=== PATIENT | female | born 1985 | race Native Hawaiian/Other Pacific Islander ===

== ENCOUNTER 2017-05-19 11:40 | Inpatient (IN) | payer OTHER ==
[2017-05-19 12:30] VITALS: BMI 35.6
[2017-05-19] MEDS ORDERED: Lactated Ringer's 1,000 ML IV SCH ×2 (12:30)
[2017-05-19 13:09] LABS: BASO # 0.1 K/uL (0.0-0.2); BASO % 0.5 % (0.0-2.0); EOS # 0.2 K/uL (0.0-0.7); EOS % 1.3 % (0.0-4.0); HEMOGLOBIN 10.5 g/dL (11.0-16.0); LYMPH # 2.8 K/uL (1.0-4.3); LYMPH % 22.3 % (20.0-40.0); MEAN CORPUSCULAR HEMOGLOBIN 24.4 pg (27.0-31.0); MEAN CORPUSCULAR HGB CONC 31.7 g/dL (33.0-37.0); MEAN PLATELET VOLUME 11.3 fL (7.2-11.7); MONO % 8.1 % (0.0-10.0); NEUT # 8.5 K/uL (1.8-7.0); NEUT % 67.8 % (50.0-75.0); NRBC % 0.2 % (0.0-2.0); RBC 4.29 Mil/uL (3.80-5.20); RED CELL DISTRIBUTION WIDTH 14.9 % (11.5-14.5); WHITE BLOOD COUNT 12.6 K/uL (4.8-10.8)
[2017-05-19 13:12] LABS: SQUAMOUS EPITHIAL 1 /hpf (0-5); URINE BACTERIA RARE (<OCC); URINE BILIRUBIN NEGATIVE (NEGATIVE); URINE BLOOD NEGATIVE (NEGATIVE); URINE CLARITY Clear (Clear); URINE COLOR Yellow (YELLOW); URINE GLUCOSE (UA) NORMAL (Normal); URINE LEUKOCYTE ESTERASE NEG Leu/uL (Negative); URINE NITRATE NEGATIVE (NEGATIVE); URINE PROTEIN NEGATIVE (NEGATIVE); URINE UROBILINOGEN NORMAL mg/dL (0.2-1.0)
[2017-05-19 13:18] LABS: ALBUMIN 3.1 g/dL (3.5-5.0)
[2017-05-19 13:20] LABS: GFR AFRICAN-AMERICAN > 60; GFR NON-AFRICAN AMERICAN > 60
[2017-05-19 13:21] LABS: ALB/GLOB RATIO 0.9 (1.0-2.1); ALT/SGPT 29 U/L (9-52); AST/SGOT 26 U/L (14-36); BLOOD UREA NITROGEN 9 mg/dL (7-17); CALCIUM 8.3 mg/dl (8.6-10.4); URIC ACID 5.1 mg/dL (2.2-7.5)
[2017-05-19 13:24] LABS: INR 0.9; PROTHROMBIN TIME 10.4 SECONDS (9.7-12.2)
--- NOTE | 2017-05-19 14:13 | OBADHP ---
Datetime: 05/19/2017 12:55 IP Chief Complaint Other: IUGR, elevated BP; hypothyroid IP Admit Plan Other: cervical ripening Admit Comment, IP Provider: 32 y.o. , LMP 08/24/16, EGA 05/31/17, EGA 38w 2d - referred by prov OB, Dr. Hale for IOL secondary to IUGR and elevated BP in office, earlier this morning. Patient stat es has been followed for EFW which have gone from 5% to 23% to 15% this morning. Unsure as to actual BP reading this morning: "it was a little high". (+) AFM; denies LOF, VB. (+) occ Ctx x 1 week; pain scale 3/10. Denies headaches, blurred vision, epigastric or RUQ pain. care: Dr. Hale: note d for diagnosis of hypothyroid on levothyroxine; evaluation for IUGR, as above. 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 2012, correction fo deviated nasal septum NKDA Meds: PNV, whey protein - QD; levothyroxine 75 micrograms daily (took her dose this morning) Soc Hx: denies tobbaco, illicit drug or EtOH use. 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 - hypothyroid; Father alive 62 y.o. no med issues. No fam h/o cancer P.E.: as above. Mildly obese, in NAD. Awake, alert, oriented to time, person and place. Pleasant a nd cooperative - cervidil placed in posterior vaginal fornix at 1250 hours. Assessment: 32 y.o. P0, 38w 2d, possible IUGR; one elevated BP reading. BP in OB-ED, within normal limits. It was reiterated to patient (after speaking with Dr Hale): cervical ripening; possible pit ocin; ROM, may be performed. Patient expressed an understanding and agrees. Her, and her 's, q uestions were answered. No stigmata of pre-eclampsia at this time. Category 1 tracing. Clinically sta ble. Plan: 1) Admit 2) Clear liquid diet, until active labor 3) Patient may ambulate, PRN (after initial 2 hours of supine position after placement of cervidil ) 4) Admission labs, including pre-eclamptic labs 5) Continuous EFM 6) Anticipate vaginal delivery - as per, and discussed with, Dr. Hale Pelvic Type - PN: Adequate Extremities - PN: Normal Abdomen - PN: Normal Back - PN: Normal Breast - PN: Not Done Lungs - PN: Normal Heart - PN: Normal Thyroid - PN: Not Done Neurologic - PN: Normal HEENT - PN: Normal General - PN: Normal Presentation-Admit: Vertex FHR - Baseline A Provider: 135 Contraction Comments Provider: none Comments, ACOG Physical Exam: Abdomen: Gravid. Soft. Non tender in all quadrants. Fundal height 38 c m All other systems reviewed and are negative Gestation - Est Wks by US: 38w 2d IP Hx Assessment: The History has been Reviewed and is Current Vital Signs Provider: Reviewed; Within Normal Limits IP Chief Complaint: Other NICHD Variability Prov Fetus A: Moderate 6-25bpm NICHD Accel Fetus A IP Provider: 15X15 FHR Category Provider Fetus A: Category I NICHD Decel Fetus A IP Provider: None Dilatation, Provider: 1 Effacement, Provider: 30 Station, Provider: -3 Genitourinary Exam: Normal DTRs - PN: Not Done EGA AdmitDate IP: 38.2 IP Adm Impression: Term, intrauterine ; No Active Labor IP Admit Plan: Admit to unit; Initiate labor induction protocol
[2017-05-19] MEDS ORDERED: Bupivacaine 0.125%/FentaNYL 200 ML EPI ONE (18:38)
--- NOTE | 2017-05-19 19:48 | OBPN ---
Datetime: 05/19/2017 19:35 Contraction Comments Provider: 1-2 FHR - Baseline A Provider: 145 Gestation - Est Wks by US: 38w 2d IP Progress Note Comment: S/P epidural; FHR noted for variable decelerations V.E.: as above. Cervidil removed Assessment: 32 y.o. P0, 38w 2d, IOL for IUGR. BPs have been normal since admission: blood work wnl . FHR as above; cervidil removed. After 8 minutes, no recurrence of decels, baseline 140 bpm. Patien t now on left lateral and oxygen by mask. Clinically stable. Plan: 1) observe 2) start pitocin 3) anticipate vaginal delivery - as per and discussed with Dr. Geoffrey CHAVEZ Accel Fetus A IP Provider: 15X15 KATHY Variability Prov Fetus A: Moderate 6-25bpm Dilatation, Provider: 3 Effacement, Provider: 40 Station, Provider: -3 KATHY Decel Fetus A IP Provider: Variable Datetime: 05/19/2017 12:55 Presentation-Admit: Vertex Vital Signs Provider: Reviewed; Within Normal Limits FHR Category Provider Fetus A: Category I
[2017-05-19] MEDS ORDERED: Oxytocin 30 UNIT 30 UNITS/500 ML BAG IV PRN (20:45)
[2017-05-19] MEDS ORDERED: cefOXitin IV 2 gm in Dextrose 2 GM/50 ML BAG IVPB ONE ×2 (21:22→21:32)
[2017-05-19] MEDS ORDERED: Sodium Citrate/Citric Acid 15 ml Sol PO ONE (21:23)
[2017-05-19] MEDS ORDERED: Sodium Citrate/Citric Acid 15 ml Sol ONE (21:32)
[2017-05-19] MEDS ORDERED: Oxytocin 20 units in LR 2,000 ML IV ONE (21:33)
--- NOTE | 2017-05-19 21:34 | OBPN ---
Datetime: 05/19/2017 21:24 IP Progress Impression Other: NRFHRT; remote from delivery IP Procedures: Sterile Vag Exam IP Progress Plan: Deliver- Section Contraction Comments Provider: 1-2 FHR - Baseline A Provider: 140 Gestation - Est Wks by US: 38w 2d IP Progress Note Comment: FHRT noted for intermitent variable decelerations Alfred reveals contractions every 1-2 minutes. Concern for well-being in light of continued trial of labor was discussed with patient by Dr Chuck Hale. Patient has opted for abdominal delivery. Assessment: 32 yo P0, 38w 2d, possible IUGR; non reassuring heart tracing remote from [facility] for delivery. Tracing now reassuring. Plan: 1) Abdominal prep and shcave 2) Pre-medications 3) Notify anesthesia 4) Notifyy peds 5) director call to O.R. - as per Dr. Hale NICHD Accel Fetus A IP Provider: 10X10 NICHD Variability Prov Fetus A: Moderate 6-25bpm Dilatation, Provider: 3 Effacement, Provider: 40 Station, Provider: -3 NICHD Decel Fetus A IP Provider: Variable
--- NOTE | 2017-05-19 21:49 | OBHP ---
Datetime: 05/19/2017 21:24 FHR - Baseline A Provider: 140 Contraction Comments Provider: 1-2 Gestation - Est Wks by US: 38w 2d NICHD Variability Prov Fetus A: Moderate 6-25bpm NICHD Accel Fetus A IP Provider: 10X10 NICHD Decel Fetus A IP Provider: Variable Dilatation, Provider: 3 Effacement, Provider: 40 Station, Provider: -3 Datetime: 05/19/2017 12:55 IP Adm Impression: Term, intrauterine ; No Active Labor IP Chief Complaint Other: IUGR, elevated BP; hypothyroid IP Admit Plan: Admit to unit; Initiate labor induction protocol IP Admit Plan Other: cervical ripening Admit Comment, IP Provider: 32 y.o. , LMP 08/24/16, EGA 05/31/17, EGA 38w 2d - referred by prov OB, Dr. Hale for IOL secondary to IUGR and elevated BP in office, earlier this morning. Patient stat es has been followed for EFW which have gone from 5% to 23% to 15% this morning. Unsure as to actual BP reading this morning: "it was a little high". (+) AFM; denies LOF, VB. (+) occ Ctx x 1 week; pain scale 3/10. Denies headaches, blurred vision, epigastric or RUQ pain. care: Dr. Hale: note d for diagnosis of hypothyroid on levothyroxine; evaluation for IUGR, as above. 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 2012, correction fo deviated nasal septum NKDA Meds: PNV, whey protein - QD; levothyroxine 75 micrograms daily (took her dose this morning) Soc Hx: denies tobbaco, illicit drug or EtOH use. 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 - hypothyroid; Father alive 62 y.o. no med issues. No fam h/o cancer P.E.: as above. Mildly obese, in NAD. Awake, alert, oriented to time, person and place. Pleasant a nd cooperative - cervidil placed in posterior vaginal fornix at 1250 hours. Assessment: 32 y.o. P0, 38w 2d, possible IUGR; one elevated BP reading. BP in OB-ED, within normal limits. It was reiterated to patient (after speaking with Dr Hale): cervical ripening; possible pit ocin; ROM, may be performed. Patient expressed an understanding and agrees. Her, and her 's, q uestions were answered. No stigmata of pre-eclampsia at this time. Category 1 tracing. Clinically sta ble. Plan: 1) Admit 2) Clear liquid diet, until active labor 3) Patient may ambulate, PRN (after initial 2 hours of supine position after placement of cervidil ) 4) Admission labs, including pre-eclamptic labs 5) Continuous EFM 6) Anticipate vaginal delivery - as per, and discussed with, Dr. Hale agree with above, pt seen in office with IUGR , being monitored for growth, reports back pain star ting last night with pelvic pressure, increseing intensity and frequency, pt also reported in headach e wiht elevated bp, no ruq/epigatsric pain. pt denies lof, vb, +FM Plan admit for IOL secondayr to IUGR r/o preeclampisa -cervidil -preepclampic labs -close observation of vitals. Pelvic Type - PN: Adequate Extremities - PN: Normal Abdomen - PN: Normal Back - PN: Normal Breast - PN: Not Done Lungs - PN: Normal Heart - PN: Normal Thyroid - PN: Not Done Neurologic - PN: Normal HEENT - PN: Normal General - PN: Normal Presentation-Admit: Vertex Comments, ACOG Physical Exam: Abdomen: Gravid. Soft. Non tender in all quadrants. Fundal height 38 c m All other systems reviewed and are negative IP Hx Assessment: The History has been Reviewed and is Current EGA AdmitDate IP: 38.2 Vital Signs Provider: Reviewed; Within Normal Limits IP Indication for Induction: IUGR IP Chief Complaint: Other FHR Category Provider Fetus A: Category I Genitourinary Exam: Normal DTRs - PN: Not Done
[2017-05-19] MEDS ORDERED: Lidocaine 2% MPF (5 ml) Inj ONE (21:53)
[2017-05-19] MEDS ORDERED: ePHEDrine 50 mg/ml Inj ONE (21:53)
--- NOTE | 2017-05-19 21:56 | OBPN ---
Datetime: 05/19/2017 21:52 IP Progress Impression: Arrest of dilatation/descent IP Informed Consent Obtain: Section Delivery IP Progress Plan: Deliver- Section Membranes, Provider: Ruptured Amniotic Fluid Color, Provider: Clear FHR - Baseline A Provider: 125 Gestation - Est Wks by US: 38.2 IP Progress Note Comment: pt seen and examined, s/p cervidil due ot recurrent declerations depsite f etal resuccitation. Pt reports pain controlled after peidural. Pt denies VB, reports lof, +FM. Pt in fomred of indication for removal of cervidil, and advised recommend pitocon therapy if not progession , however pt had recurrent declerations despite ressuctiaotn of ivh, oxygen, reposition and unable to start pitocon. pt opted not to procee wiht inducation and opted for pLTCS. R/b/a/i not limited ot b leeding, infection d/w lamine. consent signed. EM currently Cat I [place]: q 2-4 min VE: 3cm/ SROM A/P @ 38.1 wks GA with NRFTH remote from delivery -autotransfusionist to OR -npo, ivf -preop antibiovcs -preop labs -anesthiea/or aware Vital Signs Provider: Reviewed; Within Normal Limits NICHD Variability Prov Fetus A: Moderate 6-25bpm Dilatation, Provider: 3
[2017-05-19] MEDS ORDERED: Oxytocin 10 Units/ml Inj ONE (22:23)
--- NOTE | 2017-05-19 23:07 | OBDS ---
DELIVERY PERSONNEL Delivery Doctor: Mika Hale MD Scrub Nurse: Erna Turcios OBT Production Department Supervisor: Kaley Valdovinos RN Anesthesiologist: Dr Ruiz MATERNAL INFORMATION Delivery Anesthesia: Epidural Estimated Blood Loss (ml): 800 Placenta Cultured: No Maternal Complications: None Provider Comments: live male in ROP postion , nuchal cord x 1 tight, agpars 9,9 weight 6lbs 3 ounces LABOR SUMMARY EDC: 05/31/2017 00:00 No. Babies in Womb: 1 Attempted: No LABOR INFORMATION Cervical Ripening Agents: Cervidil (Annotations: [address] w[address]) Group B Beta Strep: Negative Steroids Given: None Reason Steroids Not Administered: Not Applicable STAGES OF LABOR Stage 3 hrs: 0 Stage 3 min: 1 BABY A INFORMATION Delivery Date/Time: 05/19/2017 22:20 Method of Delivery: Born in Route : No : N/A Forceps: N/A Vacuum Extraction: N/A Shoulder Dystocia : No SHOULDER DYSTOCIA BABY A Infant Delivery Date/Time: 05/19/2017 22:20 PRESENTATION/POSITION BABY A Presentation: Cephalic Cephalic Presentation: Vertex Vertex Position: Right Occipital Posterior Breech Presentation: N/A PLACENTA INFORMATION BABY A Placenta Delivery Time : 05/19/2017 22:21 Placenta Method of Delivery: Manual Removal Placenta Status: Delivered SCORES BABY A Heart Rate 1 min: >100 bpm Resp Effort 1 min: Good Cry Reflex Irritability 1 min: Cough or Sneeze or Pulls Away Muscle Tone 1 min: Active Motion Color 1 min: Body [place], Extremities Blue Resuscitation Effort 1 min: Tactile Stimulation SCORE 1 MIN: 9 Heart Rate 5 min: >100 bpm Resp Effort 5 min: Good Cry Reflex Irritability 5 min: Cough or Sneeze or Pulls Away Muscle Tone 5 min: Active Motion Color 5 min: Body [place], Extremities Blue Resuscitation Effort 5 min: N/A SCORE 5 MIN: 9 INFORMATION BABY A Gestational Age at Delivery: 38.0 Gestational Status: Term Outcome : Liveborn Condition : Stable Sex: Male IDENTIFICATION/MEDS BABY A ID Band Number: [id number] Sensor Number: [id number] WEIGHT/LENGTH BABY A Infant Birthweight (gms): 2795 Weight (lb): 6 Infant Weight (oz): 3 Infant Length Inches: 19.00 Infant Length cms: 48.3 CORD INFORMATION BABY A No. Cord Vessels: 3 Nuchal Cord : Around Neck x1, Loose Infant Suction: Mouth; Nose ASSESSMENT BABY A Complications Other: none
--- NOTE | 2017-05-19 23:08 | PCM.SURG1 ---
Surgeon's Initial Post Op Note - Surgeon's Notes Surgeon: Machelle Hale MD Registration Manager: Yolis Morrissey MD Type of Anesthesia: Other Pre-Operative Diagnosis: Term Intrauterine , Intrauterine growth restriction, non reassuring heart tracing remote from delivery Operative Findings: live male infant rop , tight nuchal cord x 1 , reduced, normal tubes and ovaries, weight of 6lbs 3 ounce. supervisor [employer] present for delivery. Dr Morrissey was present for entire delivey and case adn essential in gaining in entry , retraction, exposure, deilverying baby, holding bladder blade , closing all layers, obtaining hemostasis. Post-Operative Diagnosis: same as preoperative Operation Performed: Primary Low transverse cesearean section Specimen/Specimens Removed: placenta Estimated Blood Loss: EBL {In ML}: 800 Blood Products Given: N/A Drains Used: No Drains Date of Surgery/Procedure: 05/19/17 Time of Surgery/Procedure: 22:00
[2017-05-19] MEDS ORDERED: DiphenhydrAMINE 50 mg/ml Inj IVP PRN (23:14)
[2017-05-19] MEDS ORDERED: Morphine Monoject Barrel PCA 1mg/ml IV PRN (23:15)
[2017-05-20] MEDS: ceFAZolin IV 1 gm in Dextrose 1 GM/50 ML BAG IVPB SCH ×3 (05:37→21:57)
[2017-05-20] MEDS ORDERED: SODIUM CHLORIDE 0.9% IVPB SCH (06:00)
[2017-05-20] MEDS ORDERED: CEFAZOLIN IVPB SCH (06:00)
[2017-05-20 09:17] LABS: MEAN CELL VOLUME 76.9 fL (81.0-99.0); MEAN CORPUSCULAR HEMOGLOBIN 24.4 pg (27.0-31.0); MEAN CORPUSCULAR HGB CONC 31.7 g/dL (33.0-37.0); MEAN PLATELET VOLUME 10.6 fL (7.2-11.7); RBC 3.42 Mil/uL (3.80-5.20); RED CELL DISTRIBUTION WIDTH 15.3 % (11.5-14.5); WHITE BLOOD COUNT 12.7 K/uL (4.8-10.8)
[2017-05-20] MEDS: Oxycodone/Acetaminophen 5/325 mg Tab PO PRN ×3 (09:25→21:04)
[2017-05-20 09:26] LABS: HEMOGLOBIN 8.3 g/dL (11.0-16.0)
[2017-05-20] MEDS: Multiple Vitamins Tab PO SCH (09:26)
--- NOTE | 2017-05-20 12:57 | OBPPN ---
Datetime: 05/20/2017 09:14 PP Pain Prov: Within normal limits PP Nausea Prov: Denies PP Flatus Prov: No PP Heart Prov: Normal PP Lungs Prov: Normal PP Abdomen/Uterus Prov: Normal PP Lochia Prov: Normal PP Vulva/Perineum Prov: Normal PP CVA Tenderness Prov: Normal PP Extremities Prov: Normal PP C/S Incision Prov: Normal PP Progress Prov: Normal PP Impression Prov: Normal progression PP Plan Prov: Continue present management PP Progress Note Prov: S-patient denies any complaints.reports adequate pain control.denies nausea, vomiting, headache, chest pain, shortness of breath, numbness or tingling in hands and feet.Has not b een out of bed so far O-VSS Afebrile Fundus firm and below umbilcius Incision clean, dry and intact A/P Patient s/p csection and btl pod 1 doing well -continue routine post op care -discontinue polanco -out of bed at 10.30 am -encourage ambulation and post op care Vital Signs Provider PP: Reviewed; Within Normal Limits
[2017-05-20 14:06] LABS: BASO % 0.2 % (0.0-2.0); EOS # 0.1 K/uL (0.0-0.7); EOS % 0.5 % (0.0-4.0); HEMOGLOBIN 7.9 g/dL (11.0-16.0); LYMPH # 2.2 K/uL (1.0-4.3); LYMPH % 15.9 % (20.0-40.0); MEAN CELL VOLUME 77.6 fL (81.0-99.0); MEAN CORPUSCULAR HEMOGLOBIN 24.2 pg (27.0-31.0); MEAN CORPUSCULAR HGB CONC 31.2 g/dL (33.0-37.0); MEAN PLATELET VOLUME 10.1 fL (7.2-11.7); MONO # 0.7 K/uL (0.0-0.8); MONO % 4.8 % (0.0-10.0); NEUT # 10.7 K/uL (1.8-7.0); NEUT % 78.6 % (50.0-75.0); RBC 3.24 Mil/uL (3.80-5.20); RED CELL DISTRIBUTION WIDTH 15.2 % (11.5-14.5); WHITE BLOOD COUNT 13.6 K/uL (4.8-10.8)
[2017-05-20] MEDS: Simethicone 80 mg Chewtab PO SCH (17:42)
[2017-05-21] MEDS: Simethicone 80 mg Chewtab PO SCH ×4 (03:02→17:52)
[2017-05-21] MEDS: Oxycodone/Acetaminophen 5/325 mg Tab PO PRN ×3 (04:21→18:17)
--- NOTE | 2017-05-21 07:47 | OP ---
PROCEDURE DATE: 05/19/2017 PREOPERATIVE DIAGNOSES: Term intrauterine , intrauterine growth restriction, non-reassuring heart tracing remote from delivery. OPERATIVE FINDINGS: Live male infant, ROP, tight nuchal cord x1 reduced, normal tubes and ovaries, weight of 6 pounds 2 ounces, pocket secretary assembler present for delivery. Dr. Morrissey was present for entire delivery and caste and was integral in gaining entry, retraction and closure, delivering baby holding the bladder, closing all layers, and obtaining hemostasis. POSTOPERATIVE DIAGNOSES: Term intrauterine , intrauterine growth restriction, non-reassuring heart tracing remote from delivery. OPERATION PERFORMED: Primary low transverse section. SURGEON: Machelle Hale MD COTTON WEIGHER: Jany Morrissey MD TYPE OF ANESTHESIA: ESTIMATED BLOOD LOSS: 800 mL. BLOOD PRODUCTS: None. COMPLICATIONS: None. SPECIMEN REMOVED: Placenta. DESCRIPTION OF PROCEDURE: The patient was taken to the operating room where she was given epidural anesthesia, and once it was found to be adequate, she was placed on the operating table in dorsal lithotomy position with the legs supported using stirrups. The patient was prepped and draped in the usual sterile fashion. Timeout confirmed correct patient and correct procedure. The patient was given preoperative prophylactic antibiotics. Pfannenstiel skin incision was made with a scalpel and carried down to the underlying fascia. With the Bovie, the fascia was incised in the midline. Incision was extended laterally with Bovie. The superior aspect of the fascial incision was grasped with Allis and Alvin clamps and the underlying rectus muscle resected off bluntly. Attention was then turned to the inferior aspect of the incision with a similar fashion, it was grasped with Allis and Alvin clamps and the underlying rectus muscle resected off bluntly. The rectus muscle was then bluntly in the midline. Peritoneum identified and the clear space entered laterally and superiorly until there was good visualization of the bladder. The lower end of the Cirilo was then inserted. The vesicouterine peritoneum was incised with the Metzenbaum scissors. Incision was made laterally with Metzenbaum scissors with bladder flap created digitally. The lower end of the Juniata was then inserted, and lower uterine segment was incised in a transverse fashion, and lower uterine segment was incised in a blunt manner. The surgeon's hand entered the uterine cavity and the 's head was delivered atraumatically with tight nuchal cord x1 that was reduced followed by atraumatic delivery of anterior and posterior shoulders followed by delivery of the body. Both oral and nasal passages of the baby were bulb suctioned. The umbilical cord was clamped and cut and the baby was handed off to the awaiting pocket secretary assembler. Cord blood and cord gas collected x2. The placenta was then delivered manually. The ureters was exteriorized and cleared of all clots and debris, and the uterine incision was closed with 0 Vicryl in a running continuous locked fashion. Second layer of the same suture was used to close the uterus in a running imbricated manner with 0 Vicryl suture. There was good hemostasis at the uterine incision site. There was normal tubes and ovaries. The uterus was then returned into the abdomen and paracolic gutters were cleared of all clots and debris. There was good hemostasis of the uterine incision site. The peritoneum was reapproximated and closed 2-0 Chromic in a continuous fashion. The rectus was reapproximated and closed with 2-0 Chromic in an interrupted manner. The fascia was reapproximated and closed with 0 Vicryl in a running continuous fashion. The subcutaneous layer was closed with 2-0 plane in an interrupted manner. The skin was reapproximated and closed with 4-0 Monocryl in a running subcuticular fashion. At the end of the procedure, all needles, sponge, and instrument counts were correct. The patient tolerated the procedure well and was transferred to the recovery room in stable condition. Machelle Hale MD
[2017-05-21 08:07] LABS: BLOOD UREA NITROGEN 6 mg/dL (7-17); GFR AFRICAN-AMERICAN > 60; GFR NON-AFRICAN AMERICAN > 60
[2017-05-21 08:08] LABS: CALCIUM 8.1 mg/dl (8.6-10.4)
[2017-05-21] MEDS: Multiple Vitamins Tab PO SCH (09:44)
--- NOTE | 2017-05-21 19:01 | OBPPN ---
Datetime: 05/21/2017 07:43 PP Pain Prov: Within normal limits PP Nausea Prov: Denies PP Flatus Prov: Yes PP Abdomen/Uterus Prov: Normal PP Lochia Prov: Normal PP Extremities Prov: Normal PP C/S Incision Prov: Normal PP Comments Phys Exam Prov: fudus below umblicus ext mild edma,no calf ten incision clean and dry PP Impression Prov: Normal progression PP Plan Prov: Continue present management PP Progress Note Prov: pt was seen at bed side, pain under control,no n/v, tolerating deit,voiding,m in lochia, flatus+ pod#2 s/p c/s cont post op care pain management encourage ambulation Vital Signs Provider PP: Reviewed; Within Normal Limits
[2017-05-22] MEDS: Simethicone 80 mg Chewtab PO SCH ×2 (00:31→06:39)
[2017-05-22] MEDS: Oxycodone/Acetaminophen 5/325 mg Tab PO PRN (03:54)
[2017-05-22] MEDS: Multiple Vitamins Tab PO SCH (10:31)
--- NOTE | 2017-05-22 15:57 | OBPPN ---
Datetime: 05/22/2017 08:40 PP Pain Prov: Within normal limits PP Nausea Prov: Denies PP Flatus Prov: Yes PP Heart Prov: Normal PP Lungs Prov: Normal PP Abdomen/Uterus Prov: Normal PP Lochia Prov: Normal PP CVA Tenderness Prov: Normal PP Extremities Prov: Normal PP C/S Incision Prov: Normal PP Progress Prov: Normal PP Impression Prov: Normal progression PP Plan Prov: Discharge PP Progress Note Prov: S-patient denies any complaints.denies nausea, vomiting, headache, chest pain , shortness of breath, numbness or tingling in hands and feet O-VSS afebrile Abdomen soft and nontener Fundus firm and below umbilcius incision clean, dry and intact extremities no calf tenderness A/P Patient s/p csection pod 3 doing well -discharge today -follow up in 1 week for incision check Vital Signs Provider PP: Reviewed; Within Normal Limits
--- NOTE | 2017-05-22 15:57 | OBDCSUM ---
Datetime: 05/22/2017 08:41 Discharged to, Provider: Home Follow up at, Provider: dr dhillon Disch Instr Activity: May be up to bathroom; May be up for meals; May Shower Disch Instr Diet: Regular Discharge Instructions, Provider: Routine instructions given Discharge Diagnosis, Provider: Term Delivered Discharge Time: 05/22/2017 12:00 Follow up in weeks, Provider: may 27, 2017 Disch Referrals: None Contraception discussed, Prov: Yes Disch Activity Restrictions: No exercising; No lifting; No driving; Minimize walking; Minimize stair -climbing; No sexual activity; Nothing in vagina - [place], tampons, douche Discharge Comment, Provider: follow up with dr dhillon in 1 week for incision check Discharge Diagnosis Prov Other: s/p csection Contraception after Delivery: Not Planning to Use
[2017-05-22 16:58] VITALS: BP 129/90; PULSE 100; RESP 20; TEMP 98.3; O2SAT 98
== END 2017-05-22 19:15 | disposition home or self-care (01) | DRG 766 ==
LOC: C.EROB 11:40 → C.4D 12:23 → C.4M 05-20 01:17
PROVIDERS: ADMIT Obstetrics & Gynecology; ATTEND Obstetrics & Gynecology
PROC: 10D00Z1 Extraction of Products of Conception, Low, Open Approach (ICD-10-PCS; principal; 2017-05-19)
DX: O36.5930 Maternal care for other known or suspected poor fetal growth, third trimester, not applicable or unspecified (principal); O76 Abnormality in fetal heart rate and rhythm complicating labor and delivery; E03.8 Other specified hypothyroidism; O69.1XX0 Labor and delivery complicated by cord around neck, with compression, not applicable or unspecified; O99.284 Endocrine, nutritional and metabolic diseases complicating childbirth; R03.0 Elevated blood-pressure reading, without diagnosis of hypertension; Z3A.38 38 weeks gestation of pregnancy; Z37.0 Single live birth